=== PATIENT | female | born 2000 | race Caucasian/White ===

== ENCOUNTER 2020-01-28 08:19 | Emergency (ER) | payer BC, SELFPAY ==
--- NOTE | 2020-01-28 09:46 | ED.DENTAL ---
HPI - Dental/Oral General Chief complaint: Dental/Oral Stated complaint: R side face swollen Source: patient Mode of arrival: ambulatory Limitations: no limitations History of Present Illness HPI Narrative: 19-year-old female presents with some dental pain has dental cavity right lower molar area with surrounding gum inflammation with lower right jaw swelling tender right submandibular gland with no fever chills no shortness of breath. Complaint: tooth pain Teeth map: 1. Onset (ago): day(s) Duration: constant Severity: moderate Severity scale (1-10): 6 Relieving factors: NSAIDs Exacerbating factors: chewing, cold and drinking fluids Context: history of dental caries Associated symptoms: gum swelling Treatment prior to arrival: oral analgesic Related Data Allergies Allergy/AdvReac Type Severity Reaction Status Date / Time No Known Allergies Allergy Verified 01/28/20 09:50 Review of Systems Review of Systems: All systems reviewed & are unremarkable except as noted in HPI and below PMFSH Past Medical History Medical History Patient denies medical problems Exam Const: General: no acute distress and alert Orientation/consciousness: patient oriented x3 HENMT: Head: normal to inspection Eyes: Conjunctivae: conjunctivae normal Pupils: Equal, round and reactive pupils present Neck: Neck: lymphadenopathy Other: Swollen right tender submandibular gland Chest: Chest palpation & inspection: normal inspection of the chest and abnormal inspection of the chest Resp: Effort & Inspection: normal respiratory effort Auscultation: clear to auscultation bilaterally Cardio: Rate: regular rate Rhythm: regular rhythm GI: Auscultation: normal bowel sounds : General: Yes no CVA tenderness Back/Spine/Pelvis: Back: no CVA tenderness Skin: General skin exam: normal color Rashes: no rashes Neuro: General: patient oriented x3 and moves all extremities Extrem: General: normal to inspection Critical Care Time Critical Care Time Critical Care Time: No Discharge Plan Discharge Clinical Impression: Dental abscess Patient Disposition: Home, Self-Care Condition: Stable Instructions: Antibiotic Form, Dental Abscess (ED) Additional Instructions: take medicine as prescribed and follow-up with a dentist as soon as possible for further evaluation a Prescriptions: New amoxicillin 500 mg tablet 500 mg PO TID Qty: 30 RF: 0 naproxen 500 mg tablet 500 mg PO BID Qty: 14 RF: 0 Follow-up/Referrals: Poirot,Chuy Lerma MD [Primary Care Provider] - Stand Alone Forms: Work/School Release IP Time of Disposition: 09:52
[2020-01-28] MEDS: KETOROLAC (*BKC) 60 MG/2 ML VIAL IM (10:39)
[2020-01-28 10:58] VITALS: BP 146/81; PULSE 71; RESP 14; TEMP 37.6; O2SAT 100
== END 2020-01-28 11:08 | disposition home or self-care (01) ==
PROVIDERS: Emergency Provider Emergency Medicine; PCP Family Medicine
DX: K04.7 Periapical abscess without sinus (principal)
CPT/HCPCS: 96372; 99283; J1885

== ENCOUNTER 2020-06-11 11:38 | Emergency (ER) | payer BC, SELFPAY ==
[2020-06-11 12:30] VITALS: BP 124/62; PULSE 67; RESP 18; O2SAT 100
[2020-06-11] MEDS: LIDOCAINE HCL 1% LOCAL INJ 20 ML VIAL 10 ML INFILTRATE (12:57)
--- NOTE | 2020-06-11 13:03 | ED.DENTAL ---
HPI - Dental/Oral General Chief complaint: Dental/Oral Stated complaint: tooth pain Source: patient History of Present Illness HPI Narrative: This is a 20-year-old female presents with dental pain left lower molar area with surrounding gum inflammation patient has had an unusual a bitter taste in her mouth from drainage has tender left submandibular gland with no shortness of breath no fever chills. The patient has tried oral NSAIDs with some minimal relief, has a dentist and was not able to keep her previous appointment. MD Complaint: tooth pain Teeth map: 1. dental caries Onset (ago): month(s) Duration: constant Severity: moderate Severity scale (1-10): 8 Relieving factors: NSAIDs Exacerbating factors: chewing, cold, drinking fluids and swallowing Context: history of dental caries Associated symptoms: gum swelling Treatment prior to arrival: oral analgesic Related Data Home Medications Medication Instructions Recorded Confirmed No Home Medications 06/11/20 06/11/20 Allergies Allergy/AdvReac Type Severity Reaction Status Date / Time No Known Allergies Allergy Verified 01/28/20 09:50 Review of Systems Review of Systems: All systems reviewed & are unremarkable except as noted in HPI and below Exam Const: General: no acute distress and alert Orientation/consciousness: patient oriented x3 HENMT: Head: normal to inspection Eyes: Conjunctivae: conjunctivae normal Pupils: Equal, round and reactive pupils present Neck: Neck: normal visual inspection Other: Left submandibular gland inflammation and swelling and tenderness with palpation, left lower molar tooth decay with surrounding gum inflammation Chest: Chest palpation & inspection: normal inspection of the chest Resp: Effort & Inspection: normal respiratory effort Auscultation: clear to auscultation bilaterally Cardio: Rate: regular rate Rhythm: regular rhythm GI: Auscultation: normal bowel sounds : General: Yes no CVA tenderness Urinary Catheter: Urinary Catheter: patent and draining Back/Spine/Pelvis: Back: no CVA tenderness Neuro: General: patient oriented x3, moves all extremities and no meningeal signs Extrem: General: normal to inspection and no pedal edema Psych: Mental Status: mental status grossly normal Course Course Emergency Course: patient had local lidocaine injection with some significant improvement. Vital Signs Vital signs: Vital Signs Pulse Rate 67 06/11/20 12:30 Respiratory Rate 18 06/11/20 12:30 Blood Pressure 124/62 06/11/20 12:30 Pulse Oximetry 100 06/11/20 12:30 Pulse Rate 67 06/11/20 12:30 Respiratory Rate 18 06/11/20 12:30 Blood Pressure 124/62 06/11/20 12:30 Pulse Oximetry 100 06/11/20 12:30 Critical Care Time Critical Care Time Critical Care Time: No Discharge Plan Discharge Clinical Impression: Dental caries, Dental abscess, Toothache Patient Disposition: Still a Patient Condition: Stable Instructions: Dental Abscess (ED), Toothache (ED) Additional Instructions: Take medicine as prescribed and follow-up with dentist as soon as possible. Prescriptions: New amoxicillin 500 mg tablet 500 mg PO TID Qty: 30 RF: 0 tramadol [Ultram] 50 mg tablet 50 mg PO Q6H PRN (Reason: pain) Qty: 20 RF: 0 No Action No Home Medications RF: 0 Follow-up/Referrals: Eduin,Chuy Lerma MD [Primary Care Provider] - Stand Alone Forms: Work/School Release IP Time of Disposition: 13:10
[2020-06-11 13:10] VITALS: BP 124/62; PULSE 67; RESP 20; TEMP 36.7; O2SAT 100
== END 2020-06-11 13:11 | disposition home or self-care (01) ==
PROVIDERS: Emergency Provider Emergency Medicine; PCP Family Medicine
DX: K02.9 Dental caries, unspecified (principal); K04.7 Periapical abscess without sinus; K08.89 Other specified disorders of teeth and supporting structures
CPT/HCPCS: 99283

== ENCOUNTER 2020-12-19 14:18 | Emergency (ER) | payer BC, SELFPAY ==
--- NOTE | 2020-12-19 14:32 | ED.SKABFB ---
HPI - Skin/Abscess/Foreign Bdy General Chief complaint: Skin/Abscess/Foreign Body Stated complaint: infection on face Time Seen by Provider: 12/19/20 14:32 Source: patient and RN notes reviewed Mode of arrival: ambulatory Limitations: no limitations History of Present Illness complaint: abscess/boil Onset (ago): day(s) (1) Location: face (chin) Severity: moderate Quality: burning and dull Pain Consistency: constant Relieving factors: none Exacerbating factors: palpation Associated symptoms: denies other symptoms Treatments prior to arrival: attempted to drain pus at home Related Data Allergies Allergy/AdvReac Type Severity Reaction Status Date / Time No Known Allergies Allergy Verified 12/19/20 14:41 Review of Systems Review of Systems: All systems reviewed & are unremarkable except as noted in HPI and below PMFSH Past Medical History Medical History (Updated 12/19/20 @ 14:44 by Naresh Winters MD) Patient denies medical problems Surgical History Surgical History (Updated 12/19/20 @ 14:40 by Naresh Winters MD) No pertinent past surgical history Social History Social History (Updated 12/19/20 @ 14:40 by Naresh Winters MD) Smoking status: Current every day smoker Tobacco type: cigarettes Alcohol intake: never Substance use: current Substance use type: marijuana Other substance usage details: occasional Exam Const: General: healthy appearing and no acute distress Nutritional Appearance: well nourished and thin Orientation/consciousness: patient oriented x3 Other: female nurse in room during examination. HENMT: Head: normal to inspection Face and sinus: normal facial exam Mouth: Yes lip normal and Yes moist mucous membranes Eyes: Conjunctivae: conjunctivae normal Pupils: Equal, round and reactive pupils present EOM: EOMs intact bilaterally Neck: Neck: normal visual inspection Resp: Effort & Inspection: normal respiratory effort Auscultation: clear to auscultation bilaterally Cardio: Rate: regular rate Rhythm: regular rhythm GI: GI Palp: Yes Soft to palpation and No Tenderness to palpation present (GI) Auscultation: normal bowel sounds Back/Spine/Pelvis: Cervical Spine: cervical ROM normal Thoracic/Lumbar Spine: thoraco-lumbar ROM normal Skin: Lesions: lesion noted macule central chin borders well-defined, color red, consistency soft and mobile, morphology, surface warm and tender Neuro: General: patient oriented x3, moves all extremities, no meningeal signs and no focal motor deficits Speech: normal speech Gait exam (Neuro): Normal gait present Extrem: General: normal to inspection and no clubbing, cyanosis or edema Psych: Appearance: grossly normal and well kempt Mental Status: mental status grossly normal Affect: normal affect Attitude: cooperative Thought content: Yes Normal thought content present Course Course Emergency Course: Patient appears to have an early abscess without any formed pocket her loculation. Discharge Plan Discharge Clinical Impression: Abscess Patient Disposition: Home, Self-Care Condition: Stable Instructions: Antibiotic Form, Abscess (ED) Prescriptions: New sulfamethoxazole-trimethoprim [Bactrim DS] 800-160 mg tablet 1 tablet PO Q12H 14 Days Qty: 28 RF: 0 Follow-up/Referrals: Eduin,Chuy Lerma MD [Primary Care Provider] - Time of Disposition: 14:49
[2020-12-19 14:38] VITALS: BP 134/96; PULSE 108; RESP 20; TEMP 36.8; O2SAT 98
--- NOTE | 2020-12-19 14:38 | PC.NURSE ---
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
[2020-12-19 14:58] VITALS: BP 138/74; PULSE 74; RESP 18; TEMP 37.1; O2SAT 99
== END 2020-12-19 14:59 | disposition home or self-care (01) ==
PROVIDERS: Emergency Provider Emergency Medicine; PCP Family Medicine
DX: L02.01 Cutaneous abscess of face (principal); F17.200 Nicotine dependence, unspecified, uncomplicated; F12.90 Cannabis use, unspecified, uncomplicated
CPT/HCPCS: 99283

== ENCOUNTER 2022-08-07 14:44 | Outpatient (CLI) | payer OTHER, SELFPAY ==
[2022-08-07 15:22] LABS: Basophils Absolute Auto 0.02 K/mm3 (0.00-0.10); Basophils Percent Auto 0.3 % (0.0-1.0); Eosinophils Absolute Auto 0.06 K/mm3 (0.02-0.50); Eosinophils Percent Auto 0.8 % (1.0-6.0); Hematocrit 35.9 % (35.0-49.0); Hemoglobin 12.3 g/dL (12.0-15.0); Immature Granulocyte Absolute 0.03 K/mm3 (0.00-0.00); Immature Granulocyte Percent A 0.4 % (0.0-0.0); Lymphocytes Absolute Auto 1.35 K/mm3 (1.10-4.50); Lymphocytes Percent Auto 17.5 % (18.0-42.0); Mean Corpuscular HGB Conc 34.3 g/dL (32.0-36.0); Mean Corpuscular Hemoglobin 29.2 pg (27.0-31.0); Mean Corpuscular Volume 85.3 fL (78.0-102.0); Mean Platelet Volume 9.6 fl (9.2-11.8); Monocytes Absolute Auto 0.62 K/mm3 (0.10-0.90); Neutrophils Absolute Auto 5.6 K/mm3 (1.7-7.2); Platelet Count Result 214 K/mm3 (150-420); Red Blood Count 4.21 M/mm3 (4.20-5.40); Red Cell Distribution Width 12.6 % (11.6-14.4); White Blood Count 7.7 K/mm3 (4.8-10.8)
[2022-08-07 15:33] LABS: Appearance Urine Clear (Clear); Color Urine Light Yellow (Yellow)
[2022-08-07 15:34] LABS: Blood Urine Negative (Negative); Glucose Urine UA Negative (Negative); Ketones Urine Negative (Negative); Nitrate Urine Negative (Negative); Protein Urine Negative (Negative); Specific Grav Ur 1.025 (1.010-1.020)
[2022-08-07 15:35] LABS: Add Urine Microscopic? NO; Bilirubin Urine Negative (Negative); Leukocyte Esterase Ur Negative LEU/UL (Negative); Urobilinogen Urine 0.2 mg/dL (0.2-1.0)
[2022-08-07 15:40] LABS: Amphetamine Screen Urine Negative (Negative); Barbiturate Screen Urine Negative (Negative); Benzodiazepines Screen Urine Negative (Negative); Cannabinoid Screen Urine Positive (Negative); Cocaine Screen Urine Negative (Negative); Methadone Screen Urine Negative (Negative); Opiate Screen Urine Negative (Negative); Phencyclidine Screen Urine Negative (Negative)
[2022-08-08 06:46] LABS: HIV 1 P24 AG Negative (Negative); HIV 1/2 AB Negative (Negative)
[2022-08-09 11:25] LABS: Hepatitis B Surface Antigen Nonreactive (Nonreactive)
[2022-08-09 16:04] LABS: RPR Screen Non-Reactive (Non-Reactive)
[2022-08-10 11:59] LABS: Rubella IgG Antibody 1.63 Index
[2022-08-11 03:03] LABS: Hepatitis C Signal to Cutoff 0.01 ratio (<1.00); Hepatitis C Virus Antibody Nonreactive (Nonreactive)
== END 2022-08-07 14:45 | disposition home or self-care (01) ==
LOC: CHSLAB 14:51
PROVIDERS: Visit Provider Advanced Practice Midwife
DX: Z36.89 Encounter for other specified antenatal screening (principal)
CPT/HCPCS: 36415; 80307; 81003; 85025; 86592; 86703; 86762; 86850; 86900; 86901; 87086; 87522; 87535

== ENCOUNTER 2023-06-09 12:37 | Emergency (ER) | payer OTHER, SELFPAY ==
[2023-06-09 12:40] VITALS: BP 136/79; PULSE 77; RESP 18; TEMP 36.8; O2SAT 97
--- NOTE | 2023-06-09 13:07 | ED.GENADULT ---
HPI - General Adult General Chief complaint: Dental/Oral Stated complaint: dental pain Source: patient Mode of arrival: ambulatory Limitations: no limitations History of Present Illness HPI narrative: 23-year-old white female complains of right upper and right lower toothache and swelling of her gums associated with nausea vomiting that she has taken 18 regular strength Tylenol yesterday and 3 regular strength today the last 1 was around 9:00 a.m. followed by her vomiting at 9:00 a.m.. She said she vomited 5 times today food and acid. She know she has a rotten teeth unable to get into the dentist. She has also been using ibuprofen. Patient is currently breast-feeding her child. Patient is eating and drinking fine denies any problems voiding or stooling cough runny nose fever sore throat problems breathing rash or itching bleeding or bruising numbness or weakness lumps or bumps or swelling anywhere or any other complaints. patient is unable to get in to see a dentist in over a year she says she has an abscess on her right side for over a year. allergies: Sulfa past surgical history oral surgery past medical history noncontributory Related Data Allergies Allergy/AdvReac Type Severity Reaction Status Date / Time Sulfa (Sulfonamide Allergy Rash Verified 06/09/23 12:41 Antibiotics) Review of Systems Review of Systems: All systems reviewed & are unremarkable except as noted in HPI and below PMFSH Past Medical History Medical History (Updated 06/09/23 @ 15:39 by Bryce Lam MD) Patient denies medical problems Surgical History Surgical History (Updated 12/19/20 @ 14:40 by Naresh Winters MD) No pertinent past surgical history Social History Social History (Updated 12/19/20 @ 14:40 by Naresh Winters MD) Smoking status: Current every day smoker Tobacco type: cigarettes Alcohol intake: never Substance use: current Substance use type: marijuana Other substance usage details: occasional Exam Narrative: ? White Female patient no apparent distress.? Head normocephalic, atraumatic.? Eyes conjunctiva pink sclera nonicteric.? Extraocular movements are intact.? Ears externally normal.? Oropharynx is clear with moist mucous membranes without exudates.? dental decayed widespread no normal teeth, multiple teeth missing. Mild swelling of her gums in the right upper and right lower decayed rotten teeth. Neck is supple nontender no lymphadenopathy.? Lungs are clear.? Heart is regular rate and rhythm without murmurs gallops or rubs.? Chest wall is nontender.? Abdomen is soft and nontender no hepatosplenomegaly or masses no CVA tenderness no abdominal bruits.? Extremities no cyanosis clubbing or edema.? Skin is warm and dry without rashes or lesions.? Neurological patient is alert and oriented x4.? Motor and sensory grossly intact.? Gait is normal. Course Vital Signs Vital signs: Vital Signs Temperature 36.8 C 06/09/23 12:40 Pulse Rate 77 06/09/23 12:40 Respiratory Rate 18 06/09/23 12:40 Blood Pressure 136/79 06/09/23 12:40 Pulse Oximetry 97 06/09/23 12:40 Oxygen Delivery Room Air 06/09/23 12:40 Temperature 36.8 C 06/09/23 12:40 Pulse Rate 77 06/09/23 12:40 Respiratory Rate 18 06/09/23 12:40 Blood Pressure 136/79 06/09/23 12:40 Pulse Oximetry 97 06/09/23 12:40 Oxygen Delivery Room Air 06/09/23 12:40 Medical Decision Making MDM Narrative Medical decision making narrative: patient is placed in room 4 history and physical were performed. Patient was given Toradol 30 mg IM and she got a large amount of relief for this and felt much better. She also was given Zofran 4 mg ODT for some nausea which improved her nausea remarkably. Independent Historian: ? Patient Differential Dx includes but not limited to: abscess to dental caries acetaminophen toxicity /hepatitis Medications: medications reviewed ? Medications treatments given: Zofran 4
--- NOTE | 2023-06-09 13:38 | PC.NURSE ---
pt told erp that she took 20 tylenol today and 20 tylenol yesterday without relief. erp called poison control and advised to draw tylenol level and liver panel and call back with results.
[2023-06-09] MEDS: KETOROLAC 30 MG/ML VIAL (*BKC) IM (13:59)
[2023-06-09 14:01] LABS: Hemoglobin 13.1 g/dL (12.0-15.0); Mean Corpuscular HGB Conc 32.8 g/dL (32.0-36.0); Mean Corpuscular Hemoglobin 26.1 pg (27.0-31.0); Mean Corpuscular Volume 79.8 fL (78.0-102.0); Mean Platelet Volume 9.5 fl (9.2-11.8); Platelet Count Result 276 K/mm3 (150-420); Red Blood Count 5.01 M/mm3 (4.20-5.40); Red Cell Distribution Width 14.5 % (11.6-14.4)
[2023-06-09 14:10] LABS: Partial Thromboplastin Time 28.5 SEC (23.90-30.70); Prothrombin Time 10.8 Seconds (9.50-12.10)
[2023-06-09 14:11] LABS: Acetaminophen 3 ug/mL (10-30); Alanine Aminotransferase 21 U/L (14-59); Alkaline Phosphatase 96 U/L (46-116); Anion Gap 11 mmol/L (8-16); Aspartate Amino Transferase 21 U/L (15-37); Bilirubin,Total 0.4 mg/dL (0.00-1.00); Blood Urea Nitrogen 11 mg/dL (7-18); Calcium 9.1 mg/dL (8.5-10.1); Carbon Dioxide 28 mmol/L (21-32); Chloride 103 mmol/L (98-108); Estimated CRCL calculation 82 ml/min; Estimated Glomerular Filt Rate > 60; Glucose 91 mg/dL (70-99); Osmolality Calculated 293 mOsm/kg (285-295); Potassium 3.9 mmol/L (3.5-5.1); Sodium 142 mmol/L (136-145); Total Protein 7.5 g/dL (6.4-8.2)
[2023-06-09 14:30] VITALS: BP 121/62; PULSE 71; RESP 16; TEMP 36.4; O2SAT 100
[2023-06-09] MEDS: ONDANSETRON HCL ODT 4 MG TABLET PO (15:03)
[2023-06-09 15:25] VITALS: BP 124/66; PULSE 77; RESP 16; TEMP 36.9; O2SAT 99
== END 2023-06-09 15:45 | disposition home or self-care (01) ==
PROVIDERS: Emergency Provider Emergency Medicine
DX: K04.7 Periapical abscess without sinus (principal); R11.2 Nausea with vomiting, unspecified; T39.1X1A Poisoning by 4-Aminophenol derivatives, accidental (unintentional), initial encounter; F17.210 Nicotine dependence, cigarettes, uncomplicated
CPT/HCPCS: 36415; 80053; 80307; 85027; 85610; 85730; 96372; 99283; A9270; J1885